=== PATIENT | female | born 1985 | race Caucasian/White ===

== ENCOUNTER → 2016-12-06 | Outpatient (CLI) | payer BC ==
[~2016-12-06] MED LIST: ACET50TA PO; IBUP80TA PO; PNV-CAP5 PO
[2016-12-06 19:20] LABS: FREE T4 1.43 NG/DL (0.76-1.46)
== END ==
LOC: M LAB 17:55
PROVIDERS: ATTEND Internal Medicine Endocrinology, Diabetes & Metabolism
DX: E03.9 Hypothyroidism, unspecified (principal)

== ENCOUNTER → 2016-12-12 | Outpatient (CLI) | payer BC ==
--- NOTE | 2016-12-13 04:27 | REP ---
Clinical: Anatomical evaluation. Comparison: 09/10/2016 . Findings: Examination demonstrates a single live intrauterine in cephalic presentation. motion is identified by technologist. Placenta is noted posteriorly and grade zero with evidence for placenta previa, but no evidence for abruption. Amniotic fluid volume is normal. Cervix measures 3.2 cm in length and appears closed. No evidence for nuchal cord. Gestational age by LMP 19 weeks 4 days with MARIBELL 05/04/2017 . Gestational age by current measurements 18 weeks 5 days with MARIBELL 05/10/2017 . FHR equals 157 beats per minute. BPD 4.3 cm 18 weeks 6 days HC 15.4 cm 18 weeks 2 days AC 14.5 cm 19 weeks 6 days FL 2.7 cm 18 weeks 2 days HL 2.6 cm 18 weeks 2 days HC/AC ratio 1.06 Estimated weight 270 grams ( 27th percentile). Anatomical assessment demonstrates normal structures including cranium, cavum, cerebellum/posterior fossa, facial no file , lungs, diaphragm, stomach, cord insertion/three-vessel cord, bladder, and extremities. 9 mm right choroid plexus cyst noted. Suboptimal evaluation of the facial features, heart/ventricular outflow tracts, kidneys and spine. Impression: Single live intrauterine in cephalic presentation. Placenta previa noted. Anatomical limitations as described above including choroid plexus cyst warrants reevaluation and follow-up. Signed by Derek Carmen MD 12/13/2016 04:19 A
== END ==
LOC: M RAD 16:10
PROVIDERS: ATTEND Advanced Practice Midwife
DX: Z34.82 Encounter for supervision of other normal pregnancy, second trimester (principal); Z3A.19 19 weeks gestation of pregnancy

== ENCOUNTER → 2016-12-13 | Outpatient (CLI) | payer BC | LOC: M SMT 13:23 | PROVIDERS: ATTEND Specialist | DX: Z31.438 Encounter for other genetic testing of female for procreative management (principal) ==

== ENCOUNTER → 2016-12-20 | Outpatient (CLI) | payer BC | LOC: M SMT 08:55 | PROVIDERS: ATTEND Advanced Practice Midwife | DX: Z31.438 Encounter for other genetic testing of female for procreative management (principal) ==

== ENCOUNTER → 2016-12-27 | Outpatient (CLI) | payer BC ==
--- NOTE | 2016-12-27 10:30 | REP ---
Clinical: Anatomical evaluation. Comparison: 12/12/2016 . Findings: Examination demonstrates a single live intrauterine in breech presentation. motion is identified by technologist. Placenta is noted posteriorly and grade zero and now measures approximately 7 mm from the closed internal os. Amniotic fluid volume is normal. Cervix measures 3.0 cm in length and appears closed. No evidence for nuchal cord. Gestational age by LMP 21 weeks 5 days with MARIBELL 05/04/2017 . Gestational age by current measurements 20 weeks 2 days with MARIBELL 05/14/2017 . FHR equals 141 beats per minute. Estimated weight 370 grams ( 15th percentile). Anatomical assessment demonstrates normal structures including cranium, choroid plexus, cavum, cerebellum/posterior fossa, facial features, lungs, four-chamber heart/ventricular outflow tracts, diaphragm, stomach, cord insertion/three-vessel cord, bladder, and extremities. Previously identified choroid plexus cysts have resolved. Kidneys demonstrate mild pelviectasis. Lumbar spine is incompletely evaluated. Impression: 1. Single live intrauterine in breech presentation demonstrating appropriate interval growth. 2. Marginal placenta is 7 mm from the closed internal os. 3. Previous choroid plexus cysts resolved. 4. Anatomical limitations as described above. Remainder of the anatomical assessment is complete and normal. Signed by Derek Carmen MD 12/27/2016 10:21 A
== END ==
LOC: M SMT 07:54
PROVIDERS: ATTEND Specialist
DX: O32.1XX0 Maternal care for breech presentation, not applicable or unspecified (principal); Z3A.20 20 weeks gestation of pregnancy

== ENCOUNTER → 2017-02-05 | Outpatient (CLI) | payer BC ==
[2017-02-05 12:01] LABS: BASO % 0.3 % (0.0-1.0); EOS % 0.7 % (0.0-3.0); LARGE UNSTAINED CELL # 0.1 K/mm3 (0.0-0.4); LARGE UNSTAINED CELL % 1.6 % (0.0-4.0); LYMPH # 1.1 K/mm3 (1.5-4.5); MEAN CORPUSCULAR HEMOGLOBIN 27.2 pg (27.0-33.0); MEAN CORPUSCULAR HGB CONC 31.1 g/dl (32.0-36.5); MEAN CORPUSCULAR VOLUME 87.5 fl (80.0-96.0); MONO # 0.4 K/mm3 (0.0-0.8); MONO % 5.7 % (0.0-5.0); NEUTROPHILS # 5.3 K/mm3 (1.8-7.7); NEUTROPHILS % 76.8 % (36.0-66.0); PLATELET COUNT, AUTOMATED 228 k/mm3 (150-450); RED CELL DISTRIBUTION WIDTH 13.4 % (11.5-14.5)
--- NOTE | 2017-02-05 16:42 | REP ---
Obstetric ultrasound for anatomy follow-up study: There is a single intrauterine gestation in a vertex presentation. There is movement and cardiac activity. The heart rate is 141 beats per minute. The placenta is anterior. The inferior margin of the placenta is 2.7 cm above the internal cervical os on endovaginal ultrasound. Endovaginal Doppler ultrasound is performed and identifies no evidence of a vasa previa. The placenta demonstrates grade zero maturity. The cervix is 2.9 cm length. The amniotic fluid volume subjectively appears normal. By today's ultrasound the gestational age is 25 weeks 3 days with an MARIBELL of 05/18/2017. The gestational age recorded to the first ultrasound during this gestation is 27 weeks 3 days. Gestational age by LMP is 27 weeks 3 days. weight is 183 grams (1 pound 15 ounces). This is the 11th percentile for 27 weeks 3 days. anatomy: The spine is adequately demonstrated and unremarkable. There is bilateral hydronephrosis within the left renal pelvis measuring 8.2 mm in AP diameter and the right renal pelvis 4.8 mm. Normal is 4 mm. Attention to the kidneys on follow up studies is recommended. The remainder of the anatomy is unremarkable and unchanged from prior studies. Signed by Evan Cid MD 02/05/2017 04:33 P
[2017-02-06 09:59] LABS: WHITE BLOOD COUNT 6.9 K/mm3 (4.0-10.0)
== END ==
LOC: M SMT 08:21
PROVIDERS: ATTEND Specialist
DX: Z34.82 Encounter for supervision of other normal pregnancy, second trimester (principal); Z3A.25 25 weeks gestation of pregnancy

== ENCOUNTER → 2017-02-15 | Outpatient (CLI) | payer BC ==
[2017-02-15 19:10] LABS: FREE T4 1.23 NG/DL (0.76-1.46)
== END ==
LOC: M SMT 14:30
PROVIDERS: ATTEND Internal Medicine Endocrinology, Diabetes & Metabolism
DX: O99.281 Endocrine, nutritional and metabolic diseases complicating pregnancy, first trimester (principal); Z3A.00 Weeks of gestation of pregnancy not specified

== ENCOUNTER → 2017-03-23 | Outpatient (CLI) | payer BC ==
[2017-03-23 12:39] LABS: FREE T4 1.3 NG/DL (0.76-1.46)
== END ==
LOC: M SMT 08:15
PROVIDERS: ATTEND Internal Medicine Endocrinology, Diabetes & Metabolism
DX: O99.282 Endocrine, nutritional and metabolic diseases complicating pregnancy, second trimester (principal); Z3A.00 Weeks of gestation of pregnancy not specified

== ENCOUNTER → 2017-04-04 | Outpatient (CLI) | payer BC ==
--- NOTE | 2017-04-04 21:56 | REP ---
Clinical: Followup renal hydronephrosis. Findings: Ultrasound examination demonstrates single live advanced gestation in cephalic presentation. motion was identified by technologist. Placenta is noted anteriorly and grade 1 without evidence for placenta previa. Amniotic fluid volume is within normal limits. Cervix measures 3.2 cm in length. Gestational age by LMP 35 weeks 5 days with MARIBELL 05/04/2017. heart rate equals 136 beats per minute. Estimated weight equals 2532 grams (35th percentile). Amniotic fluid index equals 10.5 cm (7.8 - 24.9). Limited anatomical assessment demonstrates mild left renal hydronephrosis and mild right renal pelviectasis which appears improved from prior examination. (Left renal pelvis measures 4.8 mm diameter; right renal pelvis measures 1.8 mm diameter). Impression: Mild hydronephrosis/pelviectasis may warrant ultrasound evaluation. Signed by Derek Carmen MD 04/04/2017 09:47 P
== END ==
LOC: M SMT 08:46
PROVIDERS: ATTEND Specialist
DX: Z34.82 Encounter for supervision of other normal pregnancy, second trimester (principal)

== ENCOUNTER → 2017-04-17 | Outpatient (REF) | payer BC | LOC: M LAB REF 13:21 | PROVIDERS: ATTEND Advanced Practice Midwife | DX: Z34.83 Encounter for supervision of other normal pregnancy, third trimester (principal) ==

== ENCOUNTER 2017-05-10 00:50 | Inpatient (IN) | payer BC ==
[2017-05-10] VITALS (19 sets, daily range): BP systolic 129–177; BP diastolic 62–114
[~2017-05-10] VITALS: Ht 177.8 cm; Wt 80.0 kg
[2017-05-10 01:48] LABS: MEAN CORPUSCULAR HEMOGLOBIN 25.2 pg (27.0-33.0); MEAN CORPUSCULAR HGB CONC 31.8 g/dl (32.0-36.5); MEAN CORPUSCULAR VOLUME 79.2 fl (80.0-96.0); RED CELL DISTRIBUTION WIDTH 15.1 % (11.5-14.5); WHITE BLOOD COUNT 13.2 K/mm3 (4.0-10.0)
[2017-05-10 02:10] LABS: ALT/SGPT 22 U/L (12-78); AST/SGOT 27 U/L (15-37); BILIRUBIN,TOTAL 0.3 MG/DL (0.2-1.0); CREATININE FOR GFR 0.43 MG/DL (0.55-1.02); GLOMERULAR FILTRATION RATE > 60.0 (>60)
[2017-05-10] MEDS ORDERED: FENTANYL 2MCG/ML ROPIVACAINE 0.2% IN 0.9% NACL 200ML IVBAG As Ordered ONE (02:53)
[2017-05-10] MEDS ORDERED: LR 1,000 ML IV SCH (03:04)
[2017-05-10] MEDS ORDERED: OXYTOCIN DRIP 30 UNITS in APPROPRIATE DILUENT 1 EA IV SCH ×2 (03:15→04:12)
[2017-05-10] MEDS ORDERED: RHOGAM 300 MCG (1500 IU) INJ (J2790) IM SCH (04:15)
[2017-05-10] MEDS ORDERED: DIBUCAINE 1% OINTMENT 30GM TOP PRN (04:15)
[2017-05-10] MEDS ORDERED: MEASLES,MUMPS,RUBELLA VACCINE INJ (MMR-II) (90707) SC SCH (04:15)
[2017-05-10] MEDS ORDERED: LIDOCAINE 1% MDV INJ 50 ML VIAL INFIL ONE (04:15)
[2017-05-10] MEDS ORDERED: ANUSOL HC CREAM 30GM TOP PRN (04:15)
[2017-05-10] MEDS ORDERED: OXYTOCIN INJ 10 UNITS/ML VIAL (J2590) IM ONE (04:15)
[2017-05-10] MEDS ORDERED: NALOXONE INJ 0.4 MG/1 ML VIAL (J2310) IV PRN (04:45)
[2017-05-10] MEDS ORDERED: ePHEDrine SULFATE 25 MG/5 ML(5MG/ML) SYRINGE IV PRN (04:45)
[2017-05-10] MEDS ORDERED: EPIDURAL COMMENT XX SCH (04:45)
[2017-05-10] MEDS ORDERED: EPIDURAL/PCA KEYS XX PRN (04:45)
[2017-05-10] MEDS ORDERED: ONDANSETRON 4MG/2ML VIAL (J2405) IV PRN (04:45)
[2017-05-10] MEDS ORDERED: REFRIGERATOR IV KEYS XX PRN (04:45)
[2017-05-10] MEDS ORDERED: diphenhydrAMINE INJ 50MG/ML VIAL (J1200) IV PRN (04:45)
[2017-05-10] MEDS ORDERED: FENTANYL/ROPIVACAINE/NACL BAG 200 ML EPIDURAL SCH (04:45)
[2017-05-10] MEDS ORDERED: LACTATED RINGER'S 1000 ML IV PRN (04:45)
--- NOTE | 2017-05-10 05:13 | HPE ---
DATE OF ADMISSION: 05/10/2017 HISTORY OF PRESENT ILLNESS: Yudelka is a 31-year-old 2, para 1-0-0-1 at 39-4/7 weeks gestation with an estimated date of confinement (EDC) of 05/13 2017, based on first trimester ultrasound. She presents to labor and delivery today with report of onset of uncomfortable contractions earlier in the evening that are now approximately every four minutes and much more uncomfortable. She does report some scant bloody show. Denies leakage of fluid and the fetus has been active. care was initiated at [facility] in the first trimester. 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 OBSTETRICAL HISTORY July of 2013: She had a spontaneous vaginal delivery for 6 pounds 14 ounce male following induction of labor due to preeclampsia at 37-1/7 weeks. OBSTETRICAL LABORATORIES: Blood type O positive, antibody screen negative, rubella immune, VDRL nonreactive. Urine culture no growth. Hepatitis B surface antigen negative, HIV negative. Hepatitis C antibody nonreactive. Gonorrhea and chlamydia negative. She did undergo [place] testing which demonstrated low probability for aneuploidy in a female fetus. AFP was done and normal. Gestational diabetic screening 119 and her GBS is negative. She did undergo baseline labs for preeclampsia and returned a total 24-hour urine for protein of 221 mg. PAST MEDICAL HISTORY: Childhood varicella, Keena's thyroiditis, infertility. SURGERIES: Laparoscopic exploratory surgery. FAMILY HISTORY: Heart disease, brain tumor, diabetes. SOCIAL HISTORY: The patient is . Her is at bedside and supportive. She is a nonsmoker. Denies alcohol and drug use. No history of any sexually transmitted infections and she denies history of abuse physical, sexual and emotional. CURRENT MEDICATIONS: - levothyroxine 112 mcg. - vitamin ALLERGIES: No known drug allergies. OBJECTIVE: Temperature 99.3, pulse 77, blood pressure is 142/80. She does appear tense and uncomfortable during her contractions. She is alert and oriented times three. heart rate is 125, moderate variability, positive accelerations, no decelerations observed. She is sasha approximately every 4-5 minutes. Abdomen is gravid, cephalic presentation. Estimated weight 8 pounds. Sterile vaginal exam 5 cm dilated, 90% effaced, -1 station, positive bloody show. ASSESSMENT: Intrauterine at 39-4/7 weeks gestation. heart rate category one , active labor. PLAN: Admit the patient to labor and delivery. Labs including a pre-eclamptic profile. Out of bed ad javier. The patient does desire to cope with her labor physiologically at this time. Once patient is admitted, will consider assisted rupture of membranes to augment her labor. I do anticipate continued labor and a normal spontaneous vaginal delivery. MTDD
--- NOTE | 2017-05-10 06:45 | DN ---
DATE: 05/10/2017 Yudelka is a 31-year-old, 2, para 2-0-0-2 now, who was admitted to labor and delivery in active labor. She did utilize an epidural for her labor coping. She progressed to full dilation at 0313. She pushed to a normal spontaneous vaginal delivery of a live female in occiput anterior (OA) position with restitution to left occiput transverse (LOT) position at 0326. There was no nuchal cord. The shoulders delivered spontaneously and the corpus immediately followed. The female was placed on the maternal abdomen crying and active. Her mouth and nares were bulb suctioned. The cord was clamped times two once pulsations ceased and cut by the father of the baby. A cord blood was obtained. A spontaneous expulsion of an intact placenta with three-vessel cord by Osborn mechanism was at 0330. Uterine hemostasis achieved with Pitocin 10 units IM, IV Pitocin rapid infusion and uterine fundal massage. Estimated blood loss 600 mL. The perineum and vagina were inspected and noted to have a first-degree midline laceration that was infiltrated with 1% lidocaine and repaired with #3-0 Rapide in the usual fashion. The female weighed 8 pounds 8 ounces, 3846 grams, and Apgars 9 and 9. Mom plans to name her daughter, Kyler. At the close of delivery, lap counts, needle counts and instrument counts were correct and verified. Once mom and baby are recovered, they will be transferred to the mother/baby care unit.
[2017-05-10] MEDS: IBUPROFEN 800 MG TAB PO PRN ×2 (07:47→15:26)
[2017-05-10] MEDS: ACETAMINOPHEN 500 MG TAB PO PRN ×2 (11:04→18:39)
[2017-05-10] MEDS: PRENATAL VITAMINS CHEWABLE TABLET PO SCH (11:04)
[2017-05-10] MEDS: DOCUSATE SODIUM 100 MG CAP PO SCH ×2 (11:04→20:54)
[2017-05-10 14:51] LABS: MEAN CORPUSCULAR HEMOGLOBIN 24.6 pg (27.0-33.0); MEAN CORPUSCULAR HGB CONC 31.5 g/dl (32.0-36.5); MEAN CORPUSCULAR VOLUME 78.1 fl (80.0-96.0); RED CELL DISTRIBUTION WIDTH 15.3 % (11.5-14.5); WHITE BLOOD COUNT 11.9 K/mm3 (4.0-10.0)
[2017-05-10] MEDS ORDERED: LACTATED RINGER'S 1000 ML IV STA (15:10)
[2017-05-11 05:42] VITALS: BP 117/57
[2017-05-11] MEDS: IBUPROFEN 800 MG TAB PO PRN ×2 (07:57→20:00)
[2017-05-11] MEDS: PRENATAL VITAMINS CHEWABLE TABLET PO SCH (10:05)
[2017-05-11] MEDS: DOCUSATE SODIUM 100 MG CAP PO SCH ×2 (10:05→22:02)
[2017-05-11 18:05] VITALS: BP 144/70
[2017-05-12 05:52] VITALS: BP 125/73
[2017-05-12] MEDS: IBUPROFEN 800 MG TAB PO PRN (06:44)
[2017-05-12] MEDS: PRENATAL VITAMINS CHEWABLE TABLET PO SCH (08:36)
[2017-05-12] MEDS: DOCUSATE SODIUM 100 MG CAP PO SCH (08:36)
== END 2017-05-12 11:00 | disposition home or self-care (01) | DRG 560 ==
LOC: M LDI 00:50 → M OBS 06:08
PROVIDERS: ADMIT Advanced Practice Midwife; ATTEND Advanced Practice Midwife
PROC: 10E0XZZ Delivery of Products of Conception, External Approach (ICD-10-PCS; principal; 2017-05-10)
PROC: 0HQ9XZZ Repair Perineum Skin, External Approach (ICD-10-PCS; 2017-05-10)
PROC: 10907ZC Drainage of Amniotic Fluid, Therapeutic from Products of Conception, Via Natural or Artificial Opening (ICD-10-PCS; 2017-05-10)
DX: O99.284 Endocrine, nutritional and metabolic diseases complicating childbirth (principal); E06.3 Autoimmune thyroiditis; Z3A.39 39 weeks gestation of pregnancy; Z37.0 Single live birth; O70.0 First degree perineal laceration during delivery

== ENCOUNTER 2017-05-16 09:29 | Inpatient (IN) | payer BC ==
[2017-05-16] VITALS (56 sets, daily range): BP systolic 115–186; BP diastolic 55–92
[~2017-05-16] VITALS: Ht 177.8 cm; Wt 70.0 kg
[2017-05-16] MEDS ORDERED: ACETAMINOPHEN 500 MG TAB As Ordered ONE (09:52)
[2017-05-16] MEDS ORDERED: NS 1,000 ML IV ONE (10:00)
[2017-05-16 10:25] LABS: MEAN CORPUSCULAR HEMOGLOBIN 24.9 pg (27.0-33.0); MEAN CORPUSCULAR HGB CONC 31.5 g/dl (32.0-36.5); MEAN CORPUSCULAR VOLUME 79.1 fl (80.0-96.0); RED CELL DISTRIBUTION WIDTH 15.6 % (11.5-14.5); WHITE BLOOD COUNT 10.9 K/mm3 (4.0-10.0)
[2017-05-16 10:48] LABS: ALT/SGPT 35 U/L (12-78); AST/SGOT 28 U/L (15-37); BILIRUBIN,TOTAL 0.3 MG/DL (0.2-1.0); GLOMERULAR FILTRATION RATE > 60.0 (>60); URIC ACID 4.6 MG/DL (2.6-6.0)
[2017-05-16] MEDS ORDERED: IRON65TA PO (10:52)
[2017-05-16] MEDS ORDERED: ACETAMINOPHEN 500 MG TAB PO ONE (13:00)
[2017-05-16] MEDS ORDERED: MAGNESIUM SULFATE 4% INJ 20GM/500ML (40MG/ML) (J3475) As Ordered ONE (13:03)
[2017-05-16] MEDS ORDERED: MAGNESIUM *L&D* 4 GM/100 ML BAG (40MG/ML) (J3475) As Ordered ONE (13:06)
[2017-05-16] MEDS ORDERED: CALCIUM GLUCONATE 1,000 MG in D5W MINI-BAG PLUS 100 ML IV PRN (13:15)
[2017-05-16] MEDS ORDERED: LABETALOL HCL 100 MG/20 ML VIAL IV ONE (13:15)
[2017-05-16] MEDS ORDERED: MAG Sulf (L&D) 4 GM/100 ML 4 GM in APPROPRIATE DILUENT 1 EA IV ONE (13:15)
[2017-05-16] MEDS: MAG Sulf (OBGYN) 20GM/500ML 20,000 MG in APPROPRIATE DILUENT 1 EA IV SCH (13:41)
[2017-05-16] MEDS ORDERED: LR 1,000 ML IV SCH (16:48)
[2017-05-16] MEDS: ACETAMINOPHEN 500 MG TAB PO PRN (16:59)
[2017-05-16] MEDS: LABETALOL 200 MG TAB PO SCH (20:51)
[2017-05-17] VITALS (23 sets, daily range): BP systolic 100–162; BP diastolic 58–94
[2017-05-17] MEDS: ACETAMINOPHEN 500 MG TAB PO PRN (04:31)
[2017-05-17] MEDS: MAG Sulf (OBGYN) 20GM/500ML 20,000 MG in APPROPRIATE DILUENT 1 EA IV SCH (09:01)
[2017-05-17] MEDS: LABETALOL 200 MG TAB PO SCH ×2 (09:04→21:57)
[2017-05-17] MEDS: LEVOTHYROXINE 112MCG TABLET (0.112MG) PO SCH (10:51)
[2017-05-17] MEDS ORDERED: IBUPROFEN 600 MG TAB PO PRN (18:15)
[2017-05-18 02:11] VITALS: BP 118/67
[2017-05-18 05:35] VITALS: BP 139/76
[2017-05-18] MEDS: LEVOTHYROXINE 112MCG TABLET (0.112MG) PO SCH (05:57)
[2017-05-18] MEDS ORDERED: LABE10TAB PO (08:39)
[2017-05-18] MEDS ORDERED: ACET50TA PO (09:33)
[2017-05-18] MEDS ORDERED: IBUP-1114 PO (09:33)
[2017-05-18] MEDS ORDERED: NORMODYNE PO (09:33)
[2017-05-18] MEDS ORDERED: LEVO112T2 PO (09:33)
[2017-05-18 09:45] VITALS: BP 137/74
[2017-05-18] MEDS: LABETALOL 200 MG TAB PO SCH (09:45)
== END 2017-05-18 10:10 | disposition home or self-care (01) | DRG 561 ==
LOC: M LDI 09:29 → M OBS 05-17 19:30
PROVIDERS: ADMIT Obstetrics & Gynecology; ATTEND Obstetrics & Gynecology
DX: O14.15 Severe pre-eclampsia, complicating the puerperium (principal); O99.285 Endocrine, nutritional and metabolic diseases complicating the puerperium; E06.3 Autoimmune thyroiditis

== ENCOUNTER → 2017-07-24 | Outpatient (CLI) | payer BC ==
[~2017-07-24] MED LIST changes: +IBUP-1114 PO; +IRON65TA PO; +LABE10TAB PO; +LEVO112T2 PO; +NORMODYNE PO
[2017-07-24 20:32] LABS: FREE T4 1.52 NG/DL (0.76-1.46)
== END ==
LOC: M SMT 10:53
PROVIDERS: ATTEND Internal Medicine Endocrinology, Diabetes & Metabolism
DX: O99.282 Endocrine, nutritional and metabolic diseases complicating pregnancy, second trimester (principal)

== ENCOUNTER → 2017-07-30 | Outpatient (REF) | payer BC ==
[2017-07-30 16:18] LABS: VITAMIN B12 LEVEL 437 PG/ML
[2017-07-30 16:31] LABS: ANION GAP 9 MEQ/L (8-16); BLOOD UREA NITROGEN 13 MG/DL (7-18); CALCIUM LEVEL 7.9 MG/DL (8.5-10.1); CARBON DIOXIDE LEVEL 26 MEQ/L (21-32); CHLORIDE LEVEL 106 MEQ/L (98-107); CREATININE FOR GFR 0.51 MG/DL (0.55-1.02); GLOMERULAR FILTRATION RATE > 60.0 (>60); GLUCOSE, FASTING 82 MG/DL (70-105); POTASSIUM SERUM 3.5 MEQ/L (3.5-5.1); SODIUM LEVEL 141 MEQ/L (136-145)
[2017-07-30 16:33] LABS: FOLATE > 24.0 NG/ML
== END ==
LOC: M LABDRAW1 15:34
PROVIDERS: ATTEND Physician Assistant
DX: R20.2 Paresthesia of skin (principal)

== ENCOUNTER → 2017-09-25 | Outpatient (CLI) | payer BC | LOC: M SMT 09:23 | PROVIDERS: ATTEND Physician Assistant Medical | DX: R19.7 Diarrhea, unspecified (principal) ==

== ENCOUNTER → 2017-09-25 | Outpatient (REF) | payer BC ==
[2017-09-25 15:09] LABS: FREE T4 1.15 NG/DL (0.76-1.46)
== END ==
LOC: M LABDRAW1 13:02
PROVIDERS: ATTEND Internal Medicine Endocrinology, Diabetes & Metabolism
DX: E03.9 Hypothyroidism, unspecified (principal)

== ENCOUNTER 2017-10-17 11:17 | Day surgery (SDC) | payer BC ==
[~2017-10-17] VITALS: Ht 177.8 cm; Wt 61.2 kg
[~2017-10-17 11:17] MED LIST changes: +LEVO100T5 PO
[2017-10-17] MEDS ORDERED: NS 1,000 ML IV ONE (12:00)
[2017-10-17] MEDS ORDERED: PROPOFOL 500 MG/50 ML VIAL As Ordered ONE (12:37)
[2017-10-17] MEDS ORDERED: LIDOCAINE 2% INJ 100 MG/5 ML SDV (FOR ANES.) As Ordered ONE (12:37)
--- NOTE | 2017-10-17 12:42 | ROOR ---
Patient Name: Yudelka Ha Procedure Date: 10/17/2017 12:23 PM Date of : 1985 Age: 32 Room: [facility] Gender: Female Note Status: Finalized Procedure: Upper GI endoscopy + Small bowel bx. Indications: Exclusion of celiac disease, Positive celiac serologies Providers: Ameya Leiva MD Referring MD: Andreia FLOWERS DO Requesting Provider: Medicines: Monitored Anesthesia Care Complications: No immediate complications. Procedure: Pre-Anesthesia Assessment: - The heart rate, respiratory rate, oxygen saturations, blood pressure, adequacy of pulmonary ventilation, and response to care were monitored throughout the procedure. The Endoscope was introduced through the mouth, and advanced to the second part of duodenum. The upper GI endoscopy was accomplished without difficulty. The patient tolerated the procedure well. Findings: The Z-line was regular and was found 40 cm from the incisors. No other significant abnormalities were identified in a careful examination of the stomach. Decreased folds were found in the entire duodenum, flattening was found in the entire duodenum and scalloped mucosa was found in the entire duodenum. Biopsies were taken with a cold forceps for histology. Biopsies for histology were taken with a cold forceps for evaluation of celiac disease. The exam was otherwise without abnormality. Impression: - Z-line regular, 40 cm from the incisors. - Duodenal mucosal changes seen, suspicious for celiac disease. Biopsied. - The examination was otherwise normal. Recommendation: - Patient has a contact number available for emergencies. The signs and symptoms of potential delayed complications were discussed with the patient. Return to normal activities tomorrow. Written discharge instructions were provided to the patient. - Discharge patient to home. - Continue present medications. - Await pathology results. - Telephone GI clinic for pathology results in 1 week. - Gluten free diet for the rest of the patient's life. - Check Portal Online for Path Results.([email or web address] - The findings and recommendations were discussed with the patient's family. Ameya Leiva MD Ameya Leiva MD 10/17/2017 12:42:22 PM This report has been signed electronically. Number of Addenda: 0 Note Initiated On: 10/17/2017 12:23 PM Estimated Blood Loss: Estimated blood loss: none.
[2017-10-17 13:17] VITALS: BP 146/82
== END 2017-10-17 13:18 | disposition home or self-care (01) ==
LOC: M OPP 11:17
PROVIDERS: ATTEND Internal Medicine Gastroenterology
DX: R76.8 Other specified abnormal immunological findings in serum (principal); K90.0 Celiac disease; K31.89 Other diseases of stomach and duodenum; I10 Essential (primary) hypertension; E03.9 Hypothyroidism, unspecified; F41.9 Anxiety disorder, unspecified; Z79.899 Other long term (current) drug therapy

== ENCOUNTER → 2018-04-23 | Outpatient (REF) | payer BC ==
[2018-04-24 14:12] LABS: TISSUE TRANSGLUTAMINASE IgA 78 U/mL (0-3)
== END ==
LOC: M LABDRAW1 11:56
DX: K90.0 Celiac disease (principal)
CPT/HCPCS: 86256

== ENCOUNTER → 2018-08-09 | Outpatient (CLI) | payer BC ==
[2018-08-09 14:33] LABS: FREE T4 1.35 NG/DL (0.76-1.46)
== END ==
LOC: M SMT 08:09
DX: E03.9 Hypothyroidism, unspecified (principal)
CPT/HCPCS: 84443

== ENCOUNTER → 2018-10-01 | Outpatient (CLI) | payer BC ==
[2018-10-01 17:45] LABS: THYROID STIMULATING HORMONE 0.534 uIU/ML (0.358-3.740)
[2018-10-01 17:45] LABS: FREE T4 1.15 NG/DL (0.76-1.46)
[2018-10-01 17:47] LABS: TOTAL 25(OH) VITAMIN D 79.7 NG/ML (30.0-100.0)
[2018-10-03 10:17] LABS: TISSUE TRANSGLUTAMINASE IgA 23 U/mL (0-3); TISSUE TRANSGLUTAMINASE IgG 8 U/mL (0-5); UNITSIGA FOR GLIADIN IGA 62 units (0-19); UNITSIGG FOR GLIADIN IGG 60 units (0-19)
== END ==
LOC: M SMT 15:28
DX: K90.0 Celiac disease (principal); E55.9 Vitamin D deficiency, unspecified; E06.3 Autoimmune thyroiditis
CPT/HCPCS: 84443

== ENCOUNTER → 2019-08-04 | Outpatient (CLI) | payer BC ==
[~2019-08-04] MED LIST changes: -ACET50TA PO; +MAPA500T2 PO
[2019-08-04 14:28] LABS: HEPATITIS A ANTIBODY IGM NEGATIVE (NEGATIVE); HEPATITIS B CORE ANTIBODY IGM NEGATIVE (NEGATIVE); HEPATITIS B SURFACE ANTIGEN NEGATIVE (NEGATIVE); HEPATITIS C VIRUS ABY INDEX 0.3 INDEX (<0.8); HIV 1&2 SCREEN CENTAUR NEGATIVE (NEGATIVE)
== END ==
LOC: M SMT 10:52
PROVIDERS: ATTEND Physician Assistant
DX: Z02.82 Encounter for adoption services (principal)

== ENCOUNTER → 2019-08-15 | Outpatient (CLI) | payer BC ==
--- NOTE | 2019-08-15 13:37 | REP ---
PA and lateral chest: There are no comparisons. The lung contreras are hyperinflated but otherwise clear. Cardiac size is normal. The [place]ber[place], mediastinum, skeletal structures are unremarkable. Impression: Hyperinflation, otherwise, negative PA and lateral chest. Electronically Signed by Evan Cid MD 08/15/2019 01:27 P
== END ==
LOC: M RAD 12:34
PROVIDERS: ATTEND Physician Assistant
DX: J20.9 Acute bronchitis, unspecified (principal)

== ENCOUNTER → 2019-09-03 | Outpatient (REF) | payer BC ==
[2019-09-06 14:58] LABS: HPV HYBRID CAPTURE II Negative (Negative)
== END ==
LOC: M LAB REF 17:15
PROVIDERS: ATTEND Specialist
DX: Z12.4 Encounter for screening for malignant neoplasm of cervix (principal)
CPT/HCPCS: 87624; G0123

== ENCOUNTER → 2020-03-02 | Outpatient (CLI) | payer BC ==
[2020-03-02 10:53] LABS: BASO # 0.1 10^3/uL (0.0-0.2); BASO % 1.3 % (0.0-1.0); EOS # 0.1 10^3/uL (0.0-0.5); EOS % 1.7 % (0.0-3.0); HEMATOCRIT 41.6 % (36.0-47.0); HEMOGLOBIN 13.4 g/dl (12.0-15.5); LYMPH # 1.8 10^3/uL (1.5-5.0); LYMPH % 38.5 % (24.0-44.0); MEAN CORPUSCULAR HEMOGLOBIN 27.2 pg (27.0-33.0); MEAN CORPUSCULAR HGB CONC 32.2 g/dl (32.0-36.5); MEAN CORPUSCULAR VOLUME 84.4 fl (80.0-96.0); MONO # 0.4 10^3/uL (0.0-0.8); MONO % 9.4 % (0.0-5.0); NEUTROPHILS # 2.3 10^3/uL (1.5-8.5); NEUTROPHILS % 48.9 % (36.0-66.0); PLATELET COUNT, AUTOMATED 221 10^3/uL (150-450); RED BLOOD COUNT 4.93 10^6/uL (4.00-5.40); WHITE BLOOD COUNT 4.7 10^3/uL (4.0-10.0)
[2020-03-02 11:24] LABS: ALBUMIN 3.9 GM/DL (3.2-5.2); ALT/SGPT 19 U/L (12-78); BILIRUBIN,TOTAL 0.5 MG/DL (0.2-1.0); BLOOD UREA NITROGEN 14 MG/DL (7-18); CALCIUM LEVEL 8.9 MG/DL (8.5-10.1); CARBON DIOXIDE LEVEL 27 MEQ/L (21-32); CHLORIDE LEVEL 108 MEQ/L (98-107); CREATININE FOR GFR 0.74 MG/DL (0.55-1.30); FREE T4 1.26 NG/DL (0.76-1.46); GLOMERULAR FILTRATION RATE > 60.0 (>60); GLUCOSE, FASTING 93 MG/DL (70-100); POTASSIUM SERUM 3.9 MEQ/L (3.5-5.1); SODIUM LEVEL 140 MEQ/L (136-145); TOTAL PROTEIN 7.8 GM/DL (6.4-8.2)
[2020-03-02 11:26] LABS: TOTAL 25(OH) VITAMIN D 52.6 NG/ML (30.0-100.0)
== END ==
LOC: M LAB 10:00
PROVIDERS: ATTEND Physician Assistant
DX: E03.9 Hypothyroidism, unspecified (principal); E55.9 Vitamin D deficiency, unspecified; K90.0 Celiac disease

== ENCOUNTER → 2020-09-23 | Outpatient (CLI) | payer BC ==
[2020-09-23 17:46] LABS: FREE T4 1.14 NG/DL (0.76-1.46); THYROID STIMULATING HORMONE 1.49 uIU/ML (0.358-3.740)
[2020-09-23 17:47] LABS: TOTAL 25(OH) VITAMIN D 41.3 NG/ML (30.0-100.0)
[2020-09-25 11:08] LABS: TISSUE TRANSGLUTAMINASE IgA 5 U/mL (0-3); TISSUE TRANSGLUTAMINASE IgG 4 U/mL (0-5)
== END ==
LOC: M PLALAB 13:51
PROVIDERS: ATTEND Family Medicine
DX: R06.3 Periodic breathing (principal); E55.9 Vitamin D deficiency, unspecified; K90.0 Celiac disease

== ENCOUNTER → 2021-06-15 | Outpatient (CLI) | payer BC ==
[~2021-06-15] MED LIST changes: +LABE100T4 PO; -LABE10TAB PO
[2021-06-15 16:04] LABS: FREE T4 1.16 NG/DL (0.76-1.46); THYROID STIMULATING HORMONE 0.844 uIU/ML (0.358-3.740)
== END ==
LOC: M PLALAB 14:01
PROVIDERS: ATTEND Physician Assistant
DX: Z00.00 Encounter for general adult medical examination without abnormal findings (principal); E03.9 Hypothyroidism, unspecified

== ENCOUNTER → 2021-09-01 | Outpatient (CLI) | payer BC ==
[2021-09-01 10:41] LABS: BASO # 0.1 10^3/uL (0.0-0.2); EOS # 0.1 10^3/uL (0.0-0.5); EOS % 1.7 % (0.0-3.0); HEMATOCRIT 42.1 % (36.0-47.0); HEMOGLOBIN 13.2 g/dl (12.0-15.5); LYMPH # 1.6 10^3/uL (1.5-5.0); LYMPH % 31.6 % (24.0-44.0); MEAN CORPUSCULAR HEMOGLOBIN 26.7 pg (27.0-33.0); MEAN CORPUSCULAR HGB CONC 31.4 g/dl (32.0-36.5); MEAN CORPUSCULAR VOLUME 85.1 fl (80.0-96.0); MONO # 0.4 10^3/uL (0.0-0.8); MONO % 8.3 % (2.0-8.0); NEUTROPHILS % 57.2 % (36.0-66.0); PLATELET COUNT, AUTOMATED 233 10^3/uL (150-450); RED BLOOD COUNT 4.95 10^6/uL (4.00-5.40); WHITE BLOOD COUNT 5.2 10^3/uL (4.0-10.0)
[2021-09-01 11:10] LABS: ALT/SGPT 18 U/L (12-78); BILIRUBIN,TOTAL 0.3 MG/DL (0.2-1.0); BLOOD UREA NITROGEN 21 MG/DL (7-18); CARBON DIOXIDE LEVEL 26 MEQ/L (21-32); CHLORIDE LEVEL 110 MEQ/L (98-107); CREATININE FOR GFR 0.67 MG/DL (0.55-1.30); FREE T4 1.15 NG/DL (0.76-1.46); GLOMERULAR FILTRATION RATE > 60.0 (>60); GLUCOSE, FASTING 89 MG/DL (70-100); POTASSIUM SERUM 4.7 MEQ/L (3.5-5.1); SODIUM LEVEL 141 MEQ/L (136-145); THYROID STIMULATING HORMONE 0.673 uIU/ML (0.358-3.740); TOTAL PROTEIN 7.6 GM/DL (6.4-8.2)
[2021-09-01 11:13] LABS: HEMOGLOBIN A1c 5.4 %
[2021-09-06 15:11] LABS: INSULIN LEVEL 5.5 uIU/mL (2.6-24.9); TESTOSTERONE %FREE+WEAKLY BOUN 4.7 % (3.0-18.0); TESTOSTERONE FREE+WEAKLY BOUND 0.8 ng/dL (0.0-9.5); TESTOSTERONE TOTAL 16 ng/dL (8-60)
== END ==
LOC: M PLALAB 08:40
PROVIDERS: ATTEND Family Medicine
DX: Z00.00 Encounter for general adult medical examination without abnormal findings (principal); R63.5 Abnormal weight gain; Z13.0 Encounter for screening for diseases of the blood and blood-forming organs and certain disorders involving the immune mechanism; E06.3 Autoimmune thyroiditis; E55.9 Vitamin D deficiency, unspecified

== ENCOUNTER → 2022-02-08 | Outpatient (CLI) | payer BC ==
[2022-02-08 17:35] LABS: PERCENT SATURATION 19.6 % (13.2-45.0)
[2022-02-08 17:40] LABS: TOTAL 25(OH) VITAMIN D 60.7 NG/ML (30.0-100.0)
== END ==
LOC: M LAB 16:24
PROVIDERS: ATTEND Family Medicine
DX: K90.0 Celiac disease (principal); E55.9 Vitamin D deficiency, unspecified; E06.3 Autoimmune thyroiditis

== ENCOUNTER → 2022-09-01 | Outpatient (REF) | payer BC ==
[~2022-09-01] MED LIST changes: -LABE100T4 PO; +LABE100T6 PO
[2022-09-01 10:37] LABS: BASO # 0.1 10^3/uL (0.0-0.2); BASO % 0.9 % (0.0-1.0); EOS # 0.1 10^3/uL (0.0-0.5); EOS % 1.9 % (0.0-3.0); HEMATOCRIT 40.9 % (36.0-47.0); HEMOGLOBIN 12.6 g/dl (12.0-15.5); LYMPH # 1.6 10^3/uL (1.5-5.0); LYMPH % 27.3 % (24.0-44.0); MEAN CORPUSCULAR HEMOGLOBIN 25.5 pg (27.0-33.0); MEAN CORPUSCULAR HGB CONC 30.8 g/dl (32.0-36.5); MEAN CORPUSCULAR VOLUME 82.6 fl (80.0-96.0); MONO # 0.6 10^3/uL (0.0-0.8); NEUTROPHILS # 3.5 10^3/uL (1.5-8.5); NEUTROPHILS % 59.7 % (36.0-66.0); PLATELET COUNT, AUTOMATED 270 10^3/uL (150-450); RED BLOOD COUNT 4.95 10^6/uL (4.00-5.40); WHITE BLOOD COUNT 5.8 10^3/uL (4.0-10.0)
[2022-09-01 11:28] LABS: ALBUMIN 3.8 GM/DL (3.2-5.2); ALT/SGPT 21 U/L (12-78); BILIRUBIN,TOTAL 0.3 MG/DL (0.2-1.0); BLOOD UREA NITROGEN 20 MG/DL (7-18); CALCIUM LEVEL 8.5 MG/DL (8.5-10.1); CARBON DIOXIDE LEVEL 27 MEQ/L (21-32); CHLORIDE LEVEL 106 MEQ/L (98-107); CHOLESTEROL LEVEL 226 MG/DL (<200); CHOLESTEROL RISK RATIO 4.035 (<5); CREATININE FOR GFR 0.68 MG/DL (0.55-1.30); FREE T4 1.14 NG/DL (0.76-1.46); GLOMERULAR FILTRATION RATE > 60.0 (>60); GLUCOSE, FASTING 94 MG/DL (70-100); HDL CHOLESTEROL 56 MG/DL (>40); LDL CHOLESTEROL 149 MG/DL (<100); NON-HDL-C 170 MG/DL; POTASSIUM SERUM 3.7 MEQ/L (3.5-5.1); SODIUM LEVEL 136 MEQ/L (136-145); TOTAL PROTEIN 7.7 GM/DL (6.4-8.2); TRIGLYCERIDES LEVEL 105 MG/DL (<150)
[2022-09-02 12:08] LABS: TISSUE TRANSGLUTAMINASE IgA 2 U/mL (0-3); TISSUE TRANSGLUTAMINASE IgG 3 U/mL (0-5)
== END ==
LOC: M PLALAB 09:51
PROVIDERS: ATTEND Family Medicine
DX: E06.3 Autoimmune thyroiditis (principal); K90.0 Celiac disease; E55.9 Vitamin D deficiency, unspecified; Z13.220 Encounter for screening for lipoid disorders; Z13.0 Encounter for screening for diseases of the blood and blood-forming organs and certain disorders involving the immune mechanism

== ENCOUNTER → 2022-09-13 | Outpatient (CLI) | payer BC | LOC: M WHC 06:53 | PROVIDERS: ATTEND Specialist | DX: N92.0 Excessive and frequent menstruation with regular cycle (principal) ==

== ENCOUNTER → 2022-10-31 | Outpatient (CLI) | payer BC ==
[~2022-10-31] MED LIST changes: +CITA20TA7 PO; +IBUP-1022 PO; +OXYC1TAB23 PO; +PHEN37.58 PO
== END ==
LOC: M LABSMTC 09:49
PROVIDERS: ATTEND Anesthesiology
DX: Z01.818 Encounter for other preprocedural examination (principal)

== ENCOUNTER 2022-11-01 11:19 | Day surgery (SDC) | payer BC ==
[~2022-11-01] VITALS: Ht 177.8 cm; Wt 81.6 kg
[~2022-11-01 11:19] MED LIST changes: -IBUP-1022 PO; -OXYC1TAB23 PO
[2022-11-01] MEDS ORDERED: LR 1,000 ML IV SCH ×2 (11:30→15:45)
[2022-11-01] MEDS ORDERED: SCOPOLAMINE 1MG TRANSDERMAL PATCH TOP SCH (11:30)
[2022-11-01 11:50] LABS: HEMATOCRIT 42.4 % (36.0-47.0); HEMOGLOBIN 13.6 g/dl (12.0-15.5); MEAN CORPUSCULAR HEMOGLOBIN 26.6 pg (27.0-33.0); MEAN CORPUSCULAR HGB CONC 32.1 g/dl (32.0-36.5); MEAN CORPUSCULAR VOLUME 82.8 fl (80.0-96.0); PLATELET COUNT, AUTOMATED 251 10^3/uL (150-450); RED BLOOD COUNT 5.12 10^6/uL (4.00-5.40)
[2022-11-01] MEDS ORDERED: LIDOCAINE 2% 100MG/5ML SDV (FOR ANES.) As Ordered ONE (13:15)
[2022-11-01] MEDS ORDERED: propofoL 200 MG/20 ML VIAL As Ordered ONE (13:15)
[2022-11-01] MEDS ORDERED: MIDAZOLAM INJ 2MG/2ML VIAL As Ordered ONE (13:16)
[2022-11-01] MEDS ORDERED: SUGAMMADEX SODIUM 500 MG/5 ML VIAL (BRIDION) As Ordered ONE (13:16)
[2022-11-01] MEDS ORDERED: ROCURONIUM BROMIDE 50MG/5ML VIAL As Ordered ONE (13:16)
[2022-11-01] MEDS ORDERED: ONDANSETRON 4MG 2ML VIAL As Ordered ONE (13:16)
[2022-11-01] MEDS ORDERED: KETOROLAC 60MG 2ML VIAL As Ordered ONE (13:17)
[2022-11-01] MEDS ORDERED: fentaNYL 100 MCG/2 ML INJECTION As Ordered ONE ×2 (13:17→14:16)
[2022-11-01] MEDS ORDERED: ACETAMINOPHEN 1000MG 100ML IV BAG As Ordered ONE (13:20)
[2022-11-01] MEDS ORDERED: BUPIVACAINE HCL 0.25% 10ML VIAL As Ordered ONE (13:47)
[2022-11-01] MEDS ORDERED: LABETALOL 100MG/20ML VIAL As Ordered ONE (14:17)
[2022-11-01] MEDS ORDERED: METOCLOPRAMIDE INJ 10MG/2ML VIAL As Ordered ONE (14:47)
[2022-11-01] MEDS ORDERED: IBUP-1022 PO (15:28)
[2022-11-01] MEDS ORDERED: OXYC1TAB23 PO (15:28)
[2022-11-01] MEDS ORDERED: ONDANSETRON 4MG 2ML VIAL IV PRN (15:45)
[2022-11-01] MEDS ORDERED: PROMETHAZINE 25MG/ML 1ML VIAL IV PRN (15:45)
[2022-11-01] MEDS ORDERED: METOCLOPRAMIDE INJ 10MG/2ML VIAL IV PRN (15:45)
[2022-11-01] MEDS: HYDROMORPHONE HCL 0.5 MG/ 0.5 ML SYRINGE IV PRN ×3 (15:54→17:09)
[2022-11-01] MEDS: oxyCODONE 5MG TAB PO PRN ×2 (15:54→17:04)
[2022-11-01] MEDS: fentaNYL 100 MCG/2 ML INJECTION IV PRN ×4 (16:25→16:40)
[2022-11-01 19:05] VITALS: BP 140/92
== END 2022-11-01 19:08 | disposition home or self-care (01) ==
LOC: M SDC 11:19
PROVIDERS: ATTEND Specialist
DX: Z30.2 Encounter for sterilization (principal); N84.0 Polyp of corpus uteri; N92.0 Excessive and frequent menstruation with regular cycle; E06.3 Autoimmune thyroiditis; K90.0 Celiac disease; F41.9 Anxiety disorder, unspecified; Z79.899 Other long term (current) drug therapy; Z79.890 Hormone replacement therapy
CPT/HCPCS: 36415; 58563; 58661; 81025; 85027; 88302; 88305; J1100; J1170; J1885; J2405

== ENCOUNTER → 2023-10-08 | Outpatient (CLI) | payer BC ==
[~2023-10-08] MED LIST changes: +IBUP-1022 PO; +OXYC1TAB23 PO
[2023-10-08 16:38] LABS: THYROID STIMULATING HORMONE 2.105 uIU/ML (0.55-4.78)
[2023-10-08 16:40] LABS: FREE T4 1.24 NG/DL (0.89-1.76)
== END ==
LOC: M PLALAB 13:26
PROVIDERS: ATTEND Nurse Practitioner Adult Health
DX: E06.3 Autoimmune thyroiditis (principal)

== ENCOUNTER → 2023-10-15 | Outpatient (CLI) | payer BC | LOC: M WHC 07:30 | PROVIDERS: ATTEND Nurse Practitioner Adult Health | DX: Z12.31 Encounter for screening mammogram for malignant neoplasm of breast (principal); N63.11 Unspecified lump in the right breast, upper outer quadrant; N63.22 Unspecified lump in the left breast, upper inner quadrant ==

== ENCOUNTER → 2023-10-24 | Outpatient (REF) | payer BC | LOC: M SFHCWAGY 16:47 | PROVIDERS: ATTEND Nurse Practitioner Family | DX: L29.2 Pruritus vulvae (principal); R23.9 Unspecified skin changes ==

== ENCOUNTER → 2023-12-25 | Outpatient (REF) | payer BC | LOC: M SFHCWAGY 16:43 | PROVIDERS: ATTEND Nurse Practitioner Family | DX: N73.9 Female pelvic inflammatory disease, unspecified (principal); B37.9 Candidiasis, unspecified; B96.89 Other specified bacterial agents as the cause of diseases classified elsewhere ==

== ENCOUNTER 2024-01-31 13:24 | Outpatient (RCR) | payer BC | END 2024-02-03 | LOC: M PT 13:24 | PROVIDERS: ATTEND Nurse Practitioner Family | DX: N39.3 Stress incontinence (female) (male) (principal) ==

== ENCOUNTER 2024-02-07 08:13 | Outpatient (RCR) | payer BC | END 2024-03-04 | LOC: M PT 08:13 | PROVIDERS: ATTEND Nurse Practitioner Family | DX: N39.3 Stress incontinence (female) (male) (principal) ==

== ENCOUNTER 2024-03-10 13:51 | Outpatient (CLI) | payer BC ==
[2024-03-10 16:10] LABS: PTH INTACT 33.5 PG/ML (18.5-88.0)
[2024-03-10 16:14] LABS: FREE T3 2.8 PG/ML (2.3-4.2); THYROID STIMULATING HORMONE 2.763 uIU/ML (0.55-4.78)
[2024-03-10 16:15] LABS: FOLLICLE STIMULATING HORMONE 1.8 mIU/ML; FREE T4 1.21 NG/DL (0.89-1.76)
[2024-03-10 16:17] LABS: ESTRADIOL 127.2 PG/ML; LUTEINIZING HORMONE 3.7 mIU/ML
[2024-03-26 09:08] LABS: DEHYDROEPIANDROSTERONE UNCONJ 168 ng/dL (31-701); EBV VIRAL CAPSID AG IgMOLD <36.0 U/mL (0.0-35.9); SEX HORMONE BINDING GLOBULIN 61.5 nmol/L (24.6-122.0); T3 REVERSE 18.6 ng/dL (9.2-24.1); TESTOSTERONE FREE (DIRECT) 0.9 pg/mL (0.0-4.2)
[2024-12-15] MEDS ORDERED: OXYC1TAB23 PO (14:50)
[2024-12-15] MEDS ORDERED: COLA100C5 PO (14:51)
[2024-12-16] MEDS ORDERED: FLUC150T9 PO (08:08)
== END 2024-12-15 19:09 | disposition home or self-care (01) ==
LOC: M PLALAB 13:51 → M PED 12-15 18:50 → M PLALAB 12-15 19:09
PROVIDERS: ATTEND Nurse Practitioner Adult Health
DX: N95.9 Unspecified menopausal and perimenopausal disorder (principal); E06.3 Autoimmune thyroiditis; K90.0 Celiac disease

== ENCOUNTER 2024-12-15 11:39 | Observation (INO) | payer BC ==
[2024-12-15] VITALS (7 sets, daily range): BP systolic 115–136; BP diastolic 63–79; TEMP 97.5–99.6; O2SAT 94–97
[~2024-12-15] VITALS: Ht 177.8 cm; Wt 81.6 kg
[2024-12-15 12:21] LABS: HEMATOCRIT 44.8 % (36.0-47.0); HEMOGLOBIN 14.7 g/dl (12.0-15.5); MEAN CORPUSCULAR HEMOGLOBIN 29.1 pg (27.0-33.0); MEAN CORPUSCULAR HGB CONC 32.8 g/dl (32.0-36.5); MEAN CORPUSCULAR VOLUME 88.5 fl (80.0-96.0); PLATELET COUNT, AUTOMATED 260 10^3/uL (150-450); RED BLOOD COUNT 5.06 10^6/uL (4.00-5.40); WHITE BLOOD COUNT 7.5 10^3/uL (4.0-10.0)
[2024-12-15] MEDS ORDERED: ONDANSETRON 4MG 2ML VIAL As Ordered ONE (12:43)
[2024-12-15] MEDS ORDERED: LIDOCAINE 2% 100MG/5ML SDV (FOR ANES.) As Ordered ONE (12:43)
[2024-12-15] MEDS ORDERED: propofoL 200 MG/20 ML VIAL As Ordered ONE (12:43)
[2024-12-15] MEDS ORDERED: ROCURONIUM BROMIDE 50MG/5ML VIAL As Ordered ONE (12:43)
[2024-12-15] MEDS ORDERED: MIDAZOLAM INJ 2MG/2ML VIAL As Ordered ONE (12:44)
[2024-12-15] MEDS ORDERED: fentaNYL 100 MCG/2 ML INJECTION As Ordered ONE (12:44)
[2024-12-15] MEDS ORDERED: NS (Normal Saline) 0.9% 1,000 ML IV SCH ×2 (12:50→17:00)
[2024-12-15] MEDS ORDERED: ACETAMINOPHEN 1000MG/100ML IV BAG As Ordered ONE (13:03)
[2024-12-15 13:05] LABS: THYROID STIMULATING HORMONE 3.163 uIU/ML (0.55-4.78); THYROXINE (T4) 10.1 UG/DL (4.5-10.9)
[2024-12-15] MEDS ORDERED: OXYC1TAB23 PO (14:50)
[2024-12-15] MEDS ORDERED: COLA100C5 PO (14:51)
[2024-12-15] MEDS: ceFAZolin SOD 2 GM in IV 1 EA IV ONE (15:02)
[2024-12-15] MEDS ORDERED: KETOROLAC 60MG 2ML VIAL As Ordered ONE (15:22)
[2024-12-15] MEDS ORDERED: SUGAMMADEX SODIUM 500 MG/5 ML VIAL (BRIDION) As Ordered ONE (15:22)
[2024-12-15] MEDS ORDERED: METOCLOPRAMIDE INJ 10MG/2ML VIAL As Ordered ONE (15:22)
[2024-12-15] MEDS ORDERED: GLYCOPYRROLATE INJ 0.2 MG/ML 2 ML VIAL As Ordered ONE (15:40)
[2024-12-15] MEDS ORDERED: ESMOLOL INJ 100MG/10ML VIAL As Ordered ONE (16:16)
[2024-12-15] MEDS ORDERED: ONDANSETRON 4MG 2ML VIAL IV PRN ×2 (17:00→17:20)
[2024-12-15] MEDS ORDERED: PERCOCET 5MG/325MG TAB PO PRN (17:20)
[2024-12-15] MEDS ORDERED: KETOROLAC 30 MG/ML 1ML VIAL IV PRN (17:20)
[2024-12-15] MEDS: fentaNYL 100 MCG/2 ML INJECTION IV PRN (17:27)
[2024-12-15] MEDS: oxyCODONE 5MG TAB PO PRN (17:40)
[2024-12-15] MEDS: HYDROMORPHONE HCL 0.5 MG/ 0.5 ML SYRINGE IV PRN (17:59)
[2024-12-15] MEDS: LR 1,000 ML IV SCH (19:34)
[2024-12-15] MEDS: PIPERACILLIN/TAZOBACTAM SOD 3.375 GM in DEXTROSE 5% (D5W) ADV/MINI-BAG 50 ML IV SCH (20:03)
[2024-12-15] MEDS: metroNIDAZOLE 500 MG in IV 1 EA IV SCH (21:25)
[2024-12-15] MEDS: DOCUSATE SODIUM 100MG CAPSULE PO SCH (21:25)
[2024-12-16 03:50] VITALS: BP 128/75; TEMP 98.7; O2SAT 95
[2024-12-16 07:22] LABS: BASO % 0.3 % (0.0-1.0); HEMATOCRIT 39.2 % (36.0-47.0); HEMOGLOBIN 12.8 g/dl (12.0-15.5); LYMPH # 1.1 10^3/uL (1.5-5.0); LYMPH % 10.2 % (24.0-44.0); MEAN CORPUSCULAR HEMOGLOBIN 28.2 pg (27.0-33.0); MEAN CORPUSCULAR HGB CONC 32.7 g/dl (32.0-36.5); MEAN CORPUSCULAR VOLUME 86.3 fl (80.0-96.0); MONO # 0.7 10^3/uL (0.0-0.8); MONO % 6.5 % (2.0-8.0); NEUTROPHILS # 9.2 10^3/uL (1.5-8.5); NEUTROPHILS % 82.7 % (36.0-66.0); PLATELET COUNT, AUTOMATED 261 10^3/uL (150-450); RED BLOOD COUNT 4.54 10^6/uL (4.00-5.40); WHITE BLOOD COUNT 11.2 10^3/uL (4.0-10.0)
[2024-12-16 08:01] LABS: ALBUMIN 3.1 G/DL (3.2-5.2); ALKALINE PHOSPHATASE 76 U/L (35-104); ALT/SGPT 10 U/L (7.0-40); AST/SGOT 13 U/L (<34); BILIRUBIN,TOTAL 0.6 MG/DL (0.3-1.2); BLOOD UREA NITROGEN 11 MG/DL (9-23); CALCIUM LEVEL 8.7 MG/DL (8.5-10.1); CARBON DIOXIDE LEVEL 24 MMOL/L (20-31); CHLORIDE LEVEL 105 MMOL/L (98-107); CREATININE FOR GFR 0.58 MG/DL (0.55-1.30); GLOMERULAR FILTRATION RATE > 60.0 (>58); GLUCOSE, FASTING 110 MG/DL (60-100); POTASSIUM SERUM 3.8 MMOL/L (3.5-5.1); SODIUM LEVEL 139 MMOL/L (136-145); TOTAL PROTEIN 6.4 G/DL (5.7-8.2)
[2024-12-16] MEDS ORDERED: FLUC150T9 PO (08:08)
== END 2024-12-16 10:25 | disposition home or self-care (01) ==
LOC: M SDC 11:39 → M RR INP 17:20 → M PED 18:45
PROVIDERS: ADMIT Specialist; ATTEND Specialist
DX: N85.00 Endometrial hyperplasia, unspecified (principal); N85.8 Other specified noninflammatory disorders of uterus; N32.89 Other specified disorders of bladder; N73.6 Female pelvic peritoneal adhesions (postinfective); R21 Rash and other nonspecific skin eruption; Z98.890 Other specified postprocedural states; Z79.899 Other long term (current) drug therapy; Z79.2 Long term (current) use of antibiotics
CPT/HCPCS: 36415; 57283; 58571; 80053; 84436; 84443; 85025; 85027; 86850; 86900; 86901; 88307; 96365; 96376; J0131; J0665; J0690; J1100; J1171; J1596; J1805; J1836; J1885; J2250; J2405; J2543; J2765; J3010; S2900

== ENCOUNTER 2025-01-04 09:45 | Emergency (ER) | payer BC ==
[~2025-01-04] VITALS: Ht 177.8 cm; Wt 85.2 kg
[~2025-01-04 09:45] MED LIST changes: +COLA100C5 PO; +FLUC150T9 PO
[2025-01-04 11:23] LABS: BASO # 0.1 10^3/uL (0.0-0.2); BASO % 1.2 % (0.0-1.0); EOS # 0.1 10^3/uL (0.0-0.5); EOS % 2.2 % (0.0-3.0); HEMOGLOBIN 14.4 g/dl (12.0-15.5); LYMPH # 2.1 10^3/uL (1.5-5.0); LYMPH % 31.8 % (24.0-44.0); MEAN CORPUSCULAR HEMOGLOBIN 28.1 pg (27.0-33.0); MEAN CORPUSCULAR HGB CONC 32.7 g/dl (32.0-36.5); MEAN CORPUSCULAR VOLUME 85.9 fl (80.0-96.0); MONO # 0.4 10^3/uL (0.0-0.8); MONO % 6.5 % (2.0-8.0); NEUTROPHILS # 3.7 10^3/uL (1.5-8.5); PLATELET COUNT, AUTOMATED 306 10^3/uL (150-450); RED BLOOD COUNT 5.12 10^6/uL (4.00-5.40); WHITE BLOOD COUNT 6.4 10^3/uL (4.0-10.0)
[2025-01-04 12:54] LABS: ALBUMIN 3.5 G/DL (3.2-5.2); ALKALINE PHOSPHATASE 93 U/L (35-104); ALT/SGPT 10 U/L (7.0-40); AST/SGOT 12 U/L (<34); BILIRUBIN,TOTAL 0.4 MG/DL (0.3-1.2); BLOOD UREA NITROGEN 15 MG/DL (9-23); CALCIUM LEVEL 8.9 MG/DL (8.5-10.1); CARBON DIOXIDE LEVEL 24 MMOL/L (20-31); CHLORIDE LEVEL 106 MMOL/L (98-107); CREATININE FOR GFR 0.46 MG/DL (0.55-1.30); GLOMERULAR FILTRATION RATE > 60.0 (>58); GLUCOSE, FASTING 94 MG/DL (60-100); POTASSIUM SERUM 3.9 MMOL/L (3.5-5.1); SODIUM LEVEL 138 MMOL/L (136-145); TOTAL PROTEIN 7.5 G/DL (5.7-8.2)
[2025-01-04 13:03] VITALS: BP 167/72; TEMP 96.9; O2SAT 99
== END 2025-01-04 13:11 | disposition home or self-care (01) ==
LOC: M ED 09:45
DX: N99.820 Postprocedural hemorrhage of a genitourinary system organ or structure following a genitourinary system procedure (principal); Z79.1 Long term (current) use of non-steroidal anti-inflammatories (NSAID); Z79.899 Other long term (current) drug therapy

== ENCOUNTER → 2025-03-19 | Outpatient (CLI) | payer BC ==
[2025-03-19 18:17] LABS: BASO # 0.1 10^3/uL (0.0-0.2); BASO % 0.9 % (0.0-1.0); EOS # 0.2 10^3/uL (0.0-0.5); EOS % 3.3 % (0.0-3.0); HEMATOCRIT 44.3 % (36.0-47.0); HEMOGLOBIN 14.1 g/dl (12.0-15.5); LYMPH # 1.9 10^3/uL (1.5-5.0); LYMPH % 27.8 % (24.0-44.0); MEAN CORPUSCULAR HEMOGLOBIN 27.9 pg (27.0-33.0); MEAN CORPUSCULAR HGB CONC 31.8 g/dl (32.0-36.5); MEAN CORPUSCULAR VOLUME 87.5 fl (80.0-96.0); MONO # 0.7 10^3/uL (0.0-0.8); MONO % 9.4 % (2.0-8.0); NEUTROPHILS # 4.1 10^3/uL (1.5-8.5); NEUTROPHILS % 58.3 % (36.0-66.0); PLATELET COUNT, AUTOMATED 235 10^3/uL (150-450); RED BLOOD COUNT 5.06 10^6/uL (4.00-5.40)
[2025-03-19 18:54] LABS: FREE T4 1.3 NG/DL (0.89-1.76)
[2025-03-19 18:55] LABS: CALCIUM LEVEL 9.4 MG/DL (8.5-10.1); CREATININE FOR GFR 1.08 MG/DL (0.55-1.30); GLOMERULAR FILTRATION RATE 66.2 (>58); POTASSIUM SERUM 4.3 MMOL/L (3.5-5.1); THYROID STIMULATING HORMONE 0.817 uIU/ML (0.55-4.78)
== END ==
LOC: M PLALAB 15:00
PROVIDERS: ATTEND Nurse Practitioner Adult Health
DX: E06.3 Autoimmune thyroiditis (principal); E66.3 Overweight

== ENCOUNTER → 2025-05-25 | Outpatient (CLI) | payer BC | LOC: M WHC 14:55 | PROVIDERS: ATTEND Nurse Practitioner Family | DX: Z12.31 Encounter for screening mammogram for malignant neoplasm of breast (principal); R92.333 Mammographic heterogeneous density, bilateral breasts ==

== ENCOUNTER → 2025-10-23 | Outpatient (REF) | payer BC ==
[~2025-10-23] MED LIST changes: -IBUP-1022 PO; +IBUP600T42 PO; -LABE100T6 PO; +LABE100T91 PO
== END ==
LOC: M LAB REF 15:05
PROVIDERS: ATTEND Nurse Practitioner Adult Health
DX: N89.8 Other specified noninflammatory disorders of vagina (principal)

== ENCOUNTER → 2025-11-04 | Outpatient (CLI) | payer BC ==
[2025-11-04 15:32] LABS: FREE T4 1.63 NG/DL (0.89-1.76)
== END ==
LOC: M PLALAB 12:36
PROVIDERS: ATTEND Nurse Practitioner Adult Health
DX: E06.3 Autoimmune thyroiditis (principal)